=== PATIENT | male | born 1950 | race Caucasian/White ===

== ENCOUNTER 2022-07-18 11:11 | Outpatient (CLI) | payer MEDICARE, MEDICAID, SELFPAY ==
--- NOTE | ~2022-07-18 | XR_ITS ---
EXAMINATION: XR lumbar spine 2-3V DATE: 07/18/2022 11:44 INDICATION: Lumbar radiculopathy. Left calf tingling. TECHNIQUE: 3 views of lumbar spine were obtained. COMPARISON: None. FINDINGS: There is 8 degrees levocurvature of lumbar spine. Vertebral body heights are normal. There are bridging endplate osteophytes at multiple levels in the spine, consistent with diffuse idiopathic skeletal hyperostosis (DISH). There is multilevel mild to moderate facet joint osteoarthritis. IMPRESSION: 1. DISH. 2. Mild lumbar spondylosis. Reviewed, dictated and finalized at location A. ERY OPERATOR
== END 2022-07-18 11:12 | disposition home or self-care (01) ==
LOC: CHSIMG 11:21
PROVIDERS: PCP Physician Assistant; Visit Provider Physician Assistant
DX: M54.16 Radiculopathy, lumbar region (principal); M48.16 Ankylosing hyperostosis [Forestier], lumbar region; M43.06 Spondylolysis, lumbar region
CPT/HCPCS: 72100

== ENCOUNTER 2023-06-04 16:26 | Emergency (ER) | payer MEDICARE, MEDICAID, SELFPAY ==
--- NOTE | ~2023-06-04 | CT_ITS ---
EXAMINATION: CT abdomen pelvis wo con DATE: 06/04/2023 17:20 INDICATION: Left groin pain TECHNIQUE: Computed tomography (CT) of the abdomen and pelvis was performed without intravenous contr ast. Automated exposure control and iterative reconstruction technique were employed. The dose-length product was 1057.48 mGy-cm. COMPARISON: None FINDINGS: Small calcified right lower lobe nodule consistent with old granulomatous disease. A few small noncal cified nodules in the left lower lobe the largest measuring up to 4 mm. Mild discoid atelectasis in t he bilateral lower lobes. Size is normal. Small amount of atherosclerotic coronary artery calcific le silvestre. No pericardial or pleural effusion. Small calcified gallstone at the dependent neck of the norm al gallbladder with no wall thickening or pericholecystic from presenting to suggest acute cholecysti tis. Liver, spleen, pancreas and bilateral adrenal glands are normal. Kidneys and ureters are normal with no urolithiasis, hydroureteronephrosis or perinephric/ureteral stranding. There are few scattere d colonic diverticula without adjacent from trace tiny to suggest diverticulitis. The appendix is not visualized. No pericecal inflammatory change to suggest acute appendicitis. No bowel obstruction. Th ere is mild fatty infiltration of the bladder wall. There are subtle haziness to the fat surrounding the bladder and could not exclude cystitis. There is mild increased fat within the bilateral inguinal canals which could be related to body habitus or small inguinal hernias. No free intraperitoneal gas or fluid. No pathologically enlarged abdominal or pelvic lymphadenopathy. Mild lumbar and moderate l ower thoracic spondylosis with bridging osteophytes at multiple levels consistent with diffuse idiopa thic skeletal hyperostosis (DISH). IMPRESSION: 1. Subtle haziness to the fat along the bladder and could not exclude cystitis. Correlate with urinal ysis. No other acute intra-abdominal/pelvic process. 2. Cholelithiasis. 3. A few 4 mm smaller nodules in the left lower lobe. If the patient is low risk for lung cancer, no follow-up is needed. If the patient is high risk (i.e., history of smoking or asbestos or significant radiation exposure), optional follow-up chest CT could be considered at 12 months. 4. Small fatty bilateral inguinal canals which could be related to body habitus or small bilateral in guinal hernias. Reviewed, dictated and finalized at location A. OPATHOLOGIST IMPRESSION: 1. Subtle haziness to the fat along the bladder and could not exclude cystitis. Correlate with urinalysis. No other acute intra-abdominal/pelvic process. 2. Cholelithiasis. 3. A few 4 mm smaller nodules in the left lower lobe. If the patient is low ris k for lung cancer, no follow-up is needed. If the patient is high risk (i.e., h istory of smoking or asbestos or significant radiation exposure), optional foll ow-up chest CT could be considered at 12 months. 4. Small fatty bilateral inguinal canals which could be related to body habitus or small bilateral inguinal hernias.
[2023-06-04 16:26] VITALS: BP 174/91; PULSE 67; RESP 20; TEMP 36.3; O2SAT 97
[2023-06-04 17:04] LABS: Basophils Absolute Auto 0.05 K/mm3 (0.00-0.10); Basophils Percent Auto 0.4 % (0.0-1.0); Eosinophils Absolute Auto 0.62 K/mm3 (0.02-0.50); Eosinophils Percent Auto 5.3 % (1.0-6.0); Hematocrit 40.3 % (37.0-46.0); Hemoglobin 13.1 g/dL (12.4-15.3); Immature Granulocyte Absolute 0.04 K/mm3 (0.00-0.00); Immature Granulocyte Percent A 0.3 % (0.0-0.0); Lymphocytes Absolute Auto 1.73 K/mm3 (1.10-4.50); Lymphocytes Percent Auto 14.7 % (18.0-42.0); Mean Corpuscular HGB Conc 32.5 g/dL (32.0-36.0); Mean Corpuscular Hemoglobin 29.6 pg (27.0-31.0); Mean Platelet Volume 9.7 fl (8.7-11.0); Monocytes Absolute Auto 1.15 K/mm3 (0.10-0.90); Monocytes Percent Auto 9.8 % (2.0-11.0); Neutrophils Absolute Auto 8.2 K/mm3 (1.7-7.2); Neutrophils Percent Auto 69.5 % (50.0-70.0); Platelet Count Result 154 K/mm3 (150-420); Red Blood Count 4.43 M/mm3 (4.70-6.10); Red Cell Distribution Width 12.6 % (11.6-14.4); White Blood Count 11.8 K/mm3 (4.8-10.8)
[2023-06-04] MEDS: KETOROLAC 30 MG/ML VIAL (*BKC) IM (17:22)
[2023-06-04 17:24] LABS: Appearance Urine Clear (Clear); Bilirubin Urine Negative (Negative); Blood Urine Trace-Intact (Negative); Color Urine Light Yellow (Yellow); Glucose Urine UA Negative (Negative); Ketones Urine Negative (Negative); Leukocyte Esterase Ur Negative LEU/UL (Negative); Nitrate Urine Negative (Negative); Protein Urine Negative (Negative); Specific Grav Ur <= 1.005 (1.010-1.020); Urobilinogen Urine 0.2 mg/dL (0.2-1.0)
[2023-06-04 17:28] LABS: Alanine Aminotransferase 38 U/L (16-63); Albumin Level 3.9 g/dL (3.4-5.0); Alkaline Phosphatase 91 U/L (46-116); Anion Gap 6 mmol/L (8-16); Aspartate Amino Transferase 17 U/L (15-37); Bilirubin,Total 0.4 mg/dL (0.00-1.00); Blood Urea Nitrogen 13 mg/dL (7-18); Calcium 8.7 mg/dL (8.5-10.1); Carbon Dioxide 30 mmol/L (21-32); Chloride 100 mmol/L (98-108); Estimated CRCL calculation 88 ml/min; Estimated Glomerular Filt Rate > 60; Glucose 104 mg/dL (70-99); Osmolality Calculated 282 mOsm/kg (285-295); Potassium 3.6 mmol/L (3.5-5.1); Sodium 136 mmol/L (136-145); Total Protein 6.7 g/dL (6.4-8.2)
[2023-06-04 17:38] LABS: Add Urine Microscopic? YES; Bacteria Urine Trace /hpf; RBC Urine 0-2 /hpf (0-2); WBC Urine 0-3 /hpf (0-3)
--- NOTE | 2023-06-04 18:11 | ED.BACK ---
HPI - Back Pain/Injury General Chief Complaint: Back Pain/Injury Stated Complaint: sciatica Time Seen by Provider: 06/04/23 16:38 Source: patient and family Mode of arrival: ambulatory History of Present Illness HPI Narrative: this is a 72-year-old gentleman presents with lower back pain has a history of sciatica, was seen by his primary care physician and was informed to presented ER to rule out diverticulitis. Patient has left lower back pain with no flank discomfort radiating into his left groin and does have radiation into his left upper leg with no fever chills no hematuria no dysuria no history of kidney stones no nausea vomiting, rates his pain about a 7/10 and does have a history of sciatica. MD elicited complaint: back pain Pertinent past history: prior back pain Onset (ago): day(s) Timing: constant Severity: moderate Pain scale (0-10): 7 Quality: stabbing and aching Location: lumbar spine and left flank Radiation: left upper leg Related Data Home Medications Medication Instructions Recorded Confirmed atorvastatin 10 mg tablet 10 mg PO DAILY 06/04/23 06/04/23 carvedilol 12.5 mg tablet 12.5 mg PO DAILY 06/04/23 06/04/23 lisinopril 40 mg tablet 40 mg PO DAILY 06/04/23 06/04/23 Allergies Allergy/AdvReac Type Severity Reaction Status Date / Time Penicillins Allergy Anaphylaxis Verified 06/04/23 16:50 Review of Systems Review of Systems: All systems reviewed & are unremarkable except as noted in HPI and below PMFSH Past Medical History Medical History HTN (hypertension) Exam Const: General: healthy appearing Nutritional Appearance: well nourished Orientation/consciousness: patient oriented x3 Chest: Chest palpation & inspection: normal inspection of the chest Resp: Effort & Inspection: normal respiratory effort Auscultation: clear to auscultation bilaterally Cardio: Rate: regular rate Rhythm: regular rhythm GI: GI Palp: Yes Soft to palpation and Yes Tenderness to palpation present (GI) Back/Spine/Pelvis: Back: no CVA tenderness Skin: General skin exam: normal color Rashes: no rashes Neuro: Other: positive straight leg raising test on the left Extrem: General: normal to inspection Psych: Mental Status: mental status grossly normal Course Course Emergency Course: CT scan performed which shows some incidental findings which were reviewed with patient and family, the patient did have blood work and a urinalysis performed, patient received dose of Toradol IM which did improve his pain level down to from a 7 to 2/10. Vital Signs Vital signs: Vital Signs Temperature 36.3 C L 06/04/23 16:26 Pulse Rate 67 06/04/23 16:26 Respiratory Rate 20 06/04/23 16:26 Blood Pressure 174/91 H 06/04/23 16:26 Pulse Oximetry 97 06/04/23 16:26 Oxygen Delivery Room Air 06/04/23 16:26 Temperature 36.3 C L 06/04/23 16:26 Pulse Rate 67 06/04/23 16:26 Respiratory Rate 20 06/04/23 16:26 Blood Pressure 174/91 H 06/04/23 16:26 Pulse Oximetry 97 06/04/23 16:26 Oxygen Delivery Room Air 06/04/23 16:26 MDM - Back Pain/Injury Lab Data 06/04/23 17:00 06/04/23 17:00 Labs: Lab Results 06/04/23 06/04/23 Range/Units 17:00 17:17 WBC 11.8 H (4.8-10.8) K/mm3 RBC 4.43 L (4.70-6.10) M/mm3 Hgb 13.1 (12.4-15.3) g/dL Hct 40.3 (37.0-46.0) % MCV 91.0 (78.0-102.0) fL MCH 29.6 (27.0-31.0) pg MCHC 32.5 (32.0-36.0) g/dL RDW 12.6 (11.6-14.4) % Plt Count 154 (150-420) K/mm3 MPV 9.7 (8.7-11.0) fl Immature Gran % (Auto) 0.3 H (0.0-0.0) % Neut % (Auto) 69.5 (50.0-70.0) % Lymph % (Auto) 14.7 L (18.0-42.0) % Crawford % (Auto) 9.8 (2.0-11.0) % Eos % (Auto) 5.3 (1.0-6.0) % Baso % (Auto) 0.4 (0.0-1.0) % Lymph # (Auto) 1.73 (1.10-4.50) K/mm3 Crawford # (Auto) 1.15 H (0.10-0.90) K/mm3 Eos # (Auto) 0.62 H (0.02-0.50) K/mm3 Bas
[2023-06-04 18:22] VITALS: BP 162/93; PULSE 60; RESP 18; TEMP 36.4; TEMP 36.6; O2SAT 98
== END 2023-06-04 18:22 | disposition home or self-care (01) ==
PROVIDERS: Emergency Provider Emergency Medicine; PCP Physician Assistant
DX: M54.32 Sciatica, left side (principal); I10 Essential (primary) hypertension
CPT/HCPCS: 36415; 74176; 80053; 81001; 85025; 96372; 99284; J1885

== ENCOUNTER 2024-02-18 09:48 | Outpatient (CLI) | payer MEDICARE, MEDICAID, SELFPAY ==
--- NOTE | ~2024-02-18 | XR_ITS ---
EXAMINATION: XR_CERV2-3V_CR DATE: 02/18/2024 10:31 INDICATION: Cervical radiculopathy. TECHNIQUE: 4 views of cervical spine were obtained. COMPARISON: None. FINDINGS: There is 5 degrees levocurvature of cervical spine. Vertebral body heights are normal. Ther e is mildly decreased disc height at C5-C6. There are bridging endplate osteophytes from C4 to at se[address] st T1, consistent with diffuse idiopathic skeletal hyperostosis (DISH). There is multilevel mild-to-m oderate facet joint osteoarthritis. 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 No prevertebral soft tissue swelling. IMPRESSION: 1. Mild cervical spondylosis. 2. DISH. Reviewed, dictated and finalized at location A.
== END 2024-02-18 09:49 | disposition home or self-care (01) ==
LOC: CHSIMG 09:56
PROVIDERS: PCP Physician Assistant; Visit Provider Physician Assistant
DX: M54.12 Radiculopathy, cervical region (principal); M43.02 Spondylolysis, cervical region; M48.12 Ankylosing hyperostosis [Forestier], cervical region
CPT/HCPCS: 72040